=== PATIENT | female | born 1930 | race Caucasian/White ===

== ENCOUNTER 2018-10-30 13:10 | Inpatient (IN) ==
--- NOTE | 2018-10-30 13:20 | Emergency Department Note ---
Disposition Clinical Impression: Elevated troponin, DON (acute kidney injury) Fatigue Qualifiers: Fatigue type: unspecified Qualified Code(s): R53.83 - Other fatigue Disposition: Admitted As Inpatient Condition: Fair Referrals: Isidro Funes MD [Primary Care Provider] - Forms: ED Satisfaction Letter Time of Disposition: 15:27 Weakness HPI - General Chief complaint: ED Weakness Stated complaint: weakness Time Seen by Provider: 10/30/18 13:20 Source: patient Mode of arrival: ambulatory Limitations: no limitations Nursing Notes Reviewed: Yes Vital Signs Reviewed: Yes - History of Present Illness HPI Narrative: Patient is an 88-year-old female with past medical history of COPD, hypothyroidism, chronic lower extremity swelling, possible CHF, diabetes. She presents today due to concern for generalized fatigue. She states that she has felt generally unwell for the past month, has progressively felt more tired each day. She states that now she is to the point that she does not want to get out of that to perform activities of daily living such as cooking and going to the bathroom. Denies any chest pain. She does admit to some increased sputum production from her baseline with COPD. She wears oxygen 2 L at night but none during the day. She denies taking any steroid inhalers. She states that she uses albuterol as needed. Denies any other chest pain, shortness of breath, nausea, vomiting, fevers, diarrhea, abdominal pain, dysuria, hematuria, blood in stool. Admits to night sweats. She does admit to very mild vaginal bleeding from thin vaginal lining and uses Estrace cream. Pain Scale: 8 - Related Data Allergies Allergy/AdvReac Type Severity Reaction Status Date / Time No Known Allergies Allergy Verified 10/30/18 14:14 All systems ED: reviewed and negative except as stated. Constitutional: Reports: night sweats. Denies: fever Past Medical History - Past Medical History Attestation: Yes The following information was validated with the patient. Source: patient Physical Exam - General Limitations: no limitations General appearance: alert, in no apparent distress - Head Head exam: atraumatic, normocephalic, normal inspection - Eye Eye exam: Present: normal appearance, PERRL, EOMI - ENT ENT exam: normal exam, normal oropharynx, mucous membranes moist - Neck Neck exam: Present: normal inspection, full ROM, trachea midline - Chest Chest inspection: Present: normal inspection, symmetric chest wall rise - Respiratory Respiratory exam: Present: normal lung sounds bilaterally - Cardiovascular Cardiovascular exam: Present: regular rate, normal rhythm, normal heart sounds - Abdominal Exam Abdominal exam: Present: soft, Non-Tender. Absent: tenderness, distention, guarding, rebound, rigidity - Extremities Exam Extremities exam: Present: full ROM, pedal edema (pitting moderate). Absent: tenderness - Neurological Exam Neurological exam: Present: alert, oriented X3, CN II-XII intact. Absent: motor sensory deficit - Expanded Neurological Exam Patient oriented to: Present: person, place, time Speech: Present: fluid speech Cranial nerves: EOM function (II, III, IV, ): Normal, facial sensation (V): Normal, facial palsy (VII): Normal, spinal accessory function (XI): Normal, tongue deviation (XII): Normal Motor strength - LUE: 4/5 Motor strength - RUE: 4/5 Motor strength - LLE: 4/5 Motor strength - RLE: 4/5 Sensory exam lower extremity: light touch: Normal Coma Scale Eye Opening: Spontaneous Coma Scale Motor Response: Obeys Commands Coma Scale Verbal Response: Oriented Coma Scale Total: 15 - Psychiatric Psychiatric exam: Present: normal affect, normal mood - Skin Skin exam: Present: warm, dry, intact, normal color Course Course Narrative: Patient has generalized fatigue. No specific symptoms other than increased sputum production. We will obtain EKG, chest x-ray, troponin, basic blood work, TSH, free T3 and T4. Also obtain urinalysis to assess for UTI. Patient has no focal neurologic deficits and is otherwise alert and oriented 3. 15:25 labs show elevated creatinine level. Troponin bumped at 0.07. Patient has no active chest pain or shortness of breath at this time but does have fatigue. No other major joint abnormality. Urine pending. Chest x-ray shows pulmonary edema and small pleural effusions. Currently concern for CHF exacerbation. BNP pending. Patient was accepted by hospitalist. Chest X-Ray 10/30/18 13:55 IMPRESSION: 1. Cardiomegaly with mild pulmonary edema and small bilateral pleural effusions with associated bibasilar atelectasis. D/ / Syd Silverman MD / Syd Silverman MD Interpreting Provider: Syd Silverman MD Vital Signs Temperature 98.1 F 10/30/18 13:12 Pulse Rate 100 10/30/18 13:12 Respiratory Rate 22 10/30/18 13:12 Blood Pressure 148/95 10/30/18 13:12 O2 Sat by Pulse Oximetry 94 10/30/18 13:12 Temperature 98.1 F 10/30/18 14:35 Pulse Rate 100 10/30/18 14:35 Respiratory Rate 22 10/30/18 14:35 Blood Pressure 148/95 10/30/18 14:35 O2 Sat by Pulse Oximetry 94 10/30/18 14:35 Oxygen Delivery Oxygen Delivery Room Air Weakness - MDM Narrative Medical decision making narrative: Patient has generalized fatigue. No specific symptoms other than increased sputum production. We will obtain EKG, chest x-ray, troponin, basic blood work, TSH, free T3 and T4. Also obtain urinalysis to assess for UTI. Patient has no focal neurologic deficits and is otherwise alert and oriented 3. 15:25 labs show elevated creatinine level. Troponin bumped at 0.07. Patient has no active chest pain or shortness of breath at this time but does have fatigue. No other major joint abnormality. Urine pending. Chest x-ray shows pulmonary edema and small pleural effusions. Currently concern for CHF exacerbation. BNP pending. Patient was accepted by hospitalist. - Medical Records Medical records reviewed: Yes I reviewed the patient's medical records. - Lab Data Lab results reviewed: Yes I reviewed the patient's lab results. Result diagrams: 10/30/18 14:06 10/30/18 14:06 Lab Results 10/30/18 10/30/18 10/30/18 Range/Units 14:06 14:06 14:06 WBC 11.0 (4.3-11.1) K/mcL RBC 4.47 (3.82-4.97) M/mcL Hgb 12.1 (11.5-15.4) g/dL Hct 39.5 (35.3-44.9) % MCV 88.4 (83.0-100.0) fL MCH 27.1 L (28.0-33.3) pg MCHC 30.6 L (31.6-35.5) g/dL RDW 16.2 H (11.5-14.5) % Plt Count 339 (140-400) K/mcL MPV 10.0 (9.4-12.4) fL Immature Gran % 0.4 (0-4) % Seg Neutrophils % 76.2 % Lymphocytes % 15.1 % Monocytes % 5.6 % Eosinophils % 2.2 % Basophils % 0.5 % Neutrophils # 8.4 (1.6-8.9) K/mcL Lymphocytes # 1.7 (0.6-4.6) K/mcL Monocytes # 0.6 (0.0-1.3) K/mcL Eosinophils # 0.2 (0.0-0.6) K/mcL Basophils # 0.1 (0.0-0.2) K/mcL Sodium 140 (136-145) mEq/L Potassium 4.1 (3.5-5.1) mEq/L Chloride 100 (98-107) mEq/L Carbon Dioxide 33 H (23-29) mEq/L BUN 26 H (8-23) mg/dL Creatinine 1.58 H (0.60-1.20) mg/dL Est GFR ( Amer) 37 L (> 60) Est GFR (Non-Af Amer) 31 L (> 60) BUN/Creatinine Ratio 16 (6-26) Glucose 193 H (70-105) mg/dL Calculated Osmolality 300 (280-300) Calcium 9.6 (8.6-10.3) mg/dL Troponin I 0.07 H* (< 0.04) ng/mL TSH 3.200 (0.340-5.600) mcIU/mL Free T4 1.05 (0.70-2.00) ng/dl Free T3 3.26 (2.50-3.90) pg/mL - Radiology Data Radiology results reviewed: Yes I reviewed the patient's radiology results. Chest X-Ray 10/30/18 13:55 IMPRESSION: 1. Cardiomegaly with mild pulmonary edema and small bilateral pleural effusions with associated bibasilar atelectasis. D/ / Syd Silverman MD / Syd Silverman MD Interpreting Provider: Syd Silverman MD - EKG Data EKG attestation: Yes I reviewed and interpreted this EKG. EKG results narrative: 10/30/2018 at 13:24. Paced rhythm. Rate 92. QRS 157. QTc 554. No acute ST elevation or depression.
[2018-10-30 14:15] LABS: Basophils # 0.1 K/mcL (0.0-0.2); Basophils % 0.5 %; Eosinophils # 0.2 K/mcL (0.0-0.6); Eosinophils % 2.2 %; Hematocrit 39.5 % (35.3-44.9); Hemoglobin 12.1 g/dL (11.5-15.4); Immature Granulocytes % 0.4 % (0-4); Lymphocytes # 1.7 K/mcL (0.6-4.6); Lymphocytes % 15.1 %; Mean Corpuscular HGB Conc 30.6 g/dL (31.6-35.5); Mean Corpuscular Hemoglobin 27.1 pg (28.0-33.3); Mean Corpuscular Volume 88.4 fL (83.0-100.0); Monocytes # 0.6 K/mcL (0.0-1.3); Monocytes % 5.6 %; Neutrophils # 8.4 K/mcL (1.6-8.9); Platelet Count 339 K/mcL (140-400); Red Blood Count 4.47 M/mcL (3.82-4.97); Red Cell Distribution Width 16.2 % (11.5-14.5); Segmented Neutrophils % 76.2 %
[2018-10-30 14:39] LABS: Calcium 9.6 mg/dL (8.6-10.3); Potassium 4.1 mEq/L (3.5-5.1)
[2018-10-30 14:44] LABS: Troponin I 0.07 ng/mL (< 0.04)
[2018-10-30 14:53] LABS: Thyroid Stimulating Hormone 3.2 mcIU/mL (0.340-5.600)
[2018-10-30 14:55] LABS: Triiodothyronine (T3) Free 3.26 pg/mL (2.50-3.90)
[2018-10-30] MEDS ORDERED: Aspirin 81 MG TAB.CHEW PO STA (15:06)
[2018-10-30] MEDS ORDERED: Naloxone 0.4 MG/ML INJ IVP PRN (16:12)
[2018-10-30] MEDS ORDERED: *HR* Metoprolol 5 MG/5 ML VIAL IVP PRN (16:17)
--- NOTE | 2018-10-30 16:31 | Internal Med History&Physical ---
Date of Encounter: 10/30/18 Time of Encounter: 16:20 Internal Medicine - H&P: HPI Chief complaint: Generalized fatigue, BLE swelling/edema Admitted From: Home Plans for Post Hospital Care: Home History of present illness: Ms. Santos is a 88 year old female with a PMH of CKD 3, COPD, CAD, CHF, DM, chronic respiratory failure on 2 L nasal cannula at home, aortic stenosis, pacer AICD, and HTN. She presents with a greater than one-month history of generalized fatigue and malaise. She reports that she has been feeling generally unwell for greater than one month and that this has been progressively getting worse daily. She feels that she is tired all the time and unable to perform her regular activities of daily living such as self-care, grooming, toileting, or enjoying regular activities. She is not aware of any timeline of in the generalized weakness officially occurred arrest any prompting factors. However, she does note that a couple of weeks ago she was treated for diverticulitis at [facility]. She has not had any other illnesses at this time and denies any fevers, chills, arthralgias, myalgias, weight loss, chest pain, shortness of breath, abdominal pain, nausea, vomiting, diarrhea, URI symp toms, urinary symptoms, unilateral extremity swelling or pain, ill contacts or neurological symptoms. She does admit to having some intermittent night sweats which to not soak her pillowcase or nightclothes and decreased appetite. She does state that she wears 2 L nasal cannula for chronic respiratory failure with that she only wears this at night and has not had to increase her nasal cannula use. While in the ED she had a chest x-ray which showed mild cardiomegaly and mild pulmonary vascular congestion. Additionally, she was found to have an elevated troponin at 0.07. The patient and family who were at bedside deny any prior history of CAD or coronary stents and reports that she has recently had a cardiac workup at [facility] which as far as her knowledge was negative. However some of this information is contradictory as review of PCP notes Dr. nathan patient does indeed have a history of CAD. At the time of my assessment the BMP and urinalysis are pending however, my exam findings do reveal fine bibasilar rales and bilateral lower extremity 2+ pitting edema. At this time I am suspicious she may be having an acute exacerbation of CHF. However, the etiology at this time is unclear I will admit her for observation and obtain an echocardiogram and continue to trend troponins. Additionally, we will provide gentle diuresis. I do not believe at this time that she has had an acute kidney injury as she does have CKD 3. If her alterations or renal function this is most likely c ardiorenal syndrome. Also, her troponins could be explained by CKD and the patient is not endorsing chest pain, is not in obvious distress, and her EKG reveals a paced rhythm with no acute ST-T wave changes concerning for ischemia. Past Med Surg Social Fam HX - Past Medical History Medical history: diabetes, hypertension, myocardial infarction, renal disease Additional medical history: diverticulitis, aortic stenosis Psychiatric history: no psych history - Social History Smoking Status: Former smoker Smokeless Tobacco Status: No Alcohol use: none Drug use: none - Family History Brother Hx Family Endocrine Disorder: Yes (Diabetes) Internal Medicine - H&P: Meds Apixaban [Eliquis] 5 mg PO BID 10/30/18 [History] Aspirin [Adult Aspirin] 81 mg PO DAILY 10/30/18 [History] Calcitriol [Rocaltrol] 0.25 mcg PO MOWEFR 10/30/18 [History] Carvedilol [Coreg] 6.25 mg PO BIDWM 10/30/18 [History] Cholecalciferol (D-3) [Vitamin D] 1,000 unit PO DAILY 10/30/18 [History] Esomeprazole Magnesium [Nexium] 40 mg PO DAILY 10/30/18 [History] Estradiol [Estrace] 1 appl VG DAILY 10/30/18 [History] Furosemide [Lasix] 20 mg PO DAILY 10/30/18 [History] Gabapentin [Neurontin] 100 mg PO TID 10/30/18 [History] Indapamide [Lozol] 1.25 mg PO BID 10/30/18 [History] Insulin Glargine,Hum.rec.anlog [Basaglar Kwikpen U-100] 0 unit SQ 10/30/18 [History] Levothyroxine [Synthroid] 50 mcg PO DAILY 10/30/18 [History] Linagliptin [Tradjenta] 5 mg PO DAILY 10/30/18 [History] Mv,Fe,Min/Lutein [A Thru Z [employer]'s Tablet] 1 tab PO DAILY 10/30/18 [History] Olmesartan Medoxomil [Benicar] 20 mg PO DAILY 10/30/18 [History] Tramadol HCl [Ultram] 50 mg PO Q12H PRN 10/30/18 [History] glipiZIDE [Glipizide] 10 mg PO DAILY 10/30/18 [History] Allergy/AdvReac Type Severity Reaction Status Date / Time No Known Allergies Allergy Verified 10/30/18 14:14 All Systems PM: A 10-system review of systems was performed and is negative for pertinent findings except as documented above in the HPI. - Constitutional Constitutional: as per HPI - EENT Eyes: as per HPI Ears: as per HPI Nose, mouth and throat: as per HPI - Breasts Breasts: as per HPI - Cardiovascular Cardiovascular ROS IM: as per HPI, edema - Respiratory Respiratory: as per HPI, no dyspnea - Gastrointestinal Gastrointestinal: as per HPI, bloating - Genitourinary Genitourinary: as per HPI - Musculoskeletal Musculoskeletal ROS IM: as per HPI, no arthralgias, no myalgias - Integumentary Integumentary IM: as per HPI - Neurological Neurological ROS: as per HPI - Constitutional Vitals: Temp Pulse Resp BP Pulse Ox 98.1 F 100 22 148/95 94 10/30/18 14:35 10/30/18 14:35 10/30/18 14:35 10/30/18 14:35 10/30/18 14:35 General appearance: Present: A&O X 3 Exam: PHYSICAL EXAMINATION: GENERAL: The patient is an obese elderly female, NAD, a and O 3 HEENT: Head is normocephalic and atraumatic. EOMI, PERRLA NECK: Supple. No carotid bruits. No lymphadenopathy or thyromegaly. LUNGS: Diminished with fine bibasilar rales HEART: Regular rate and rhythm, S1, S2 without murmur. BLE 2+ pitting edema ABDOMEN: Soft, nontender, and nondistended. Positive bowel sounds. EXTREMITIES: Without any cyanosis, clubbing, rash, lesions NEUROLOGIC: Cranial nerves II through XII are grossly intact. SKIN: No ulceration or induration present. Internal Med - H&P Results - Labs CBC & Chem 7: 10/30/18 14:06 10/30/18 14:06 Labs: Short CBC 10/30/18 Range/Units 14:06 WBC 11.0 (4.3-11.1) K/mcL Hgb 12.1 (11.5-15.4) g/dL Hct 39.5 (35.3-44.9) % Plt Count 339 (140-400) K/mcL Neutrophils # 8.4 (1.6-8.9) K/mcL BMP 10/30/18 14:06 Sodium 140 Potassium 4.1 Chloride 100 Carbon Dioxide 33 H BUN 26 H Creatinine 1.58 H Glucose 193 H Calcium 9.6 Cardiac Enzymes 10/30/18 Range/Units 14:06 Troponin I 0.07 H* (< 0.04) ng/mL - EKG Data -: EKG Interpreted by Myself - EKG Data EKG comments: Paced rhythm rate of [address]-T wave changes concerning for ischemia per my review 10/30/18 16:38 - Impressions ITS Impressions Chest X-Ray 10/30/18 13:55 IMPRESSION: 1. Cardiomegaly with mild pulmonary edema and small bilateral pleural effusions with associated bibasilar atelectasis. D/ / Syd Silverman MD / Syd Silverman MD Interpreting Provider: Syd Silverman MD - Assessment and plan (1) Generalized weakness Current Visit: Yes Status: Acute Assessment and plan: Reporting generalized weakness greater than one-month Etiology unclear On admission was found to have pulmonary vascular congestion, fluid overload with BLE 2+ pitting edema and elevated BNP of 1523 Troponin elevated at 0.07 Generalized weakness and fatigue most likely attributed to fluid overload and CHF PT/OT to see (2) Congestive heart failure Current Visit: Yes Status: Acute Assessment and plan: Acute unspecified heart failure prior echocardiogram for review Order TTE to assess cardiac function to evaluate for valvular abnormalities Presented with fluid overload; CXR with pulmonary vascular congestion, elevated BNP [address]-T wave changes concerning for ischemia, with paced rhythm Initial troponin elevated at 0.07 However, patient remains chest pain-free and denies ever having any chest pain Strict I's and O's Daily weight 2 L fluid restriction Lasix 40 mg IV push twice a day Qualifiers: Heart failure type: unspecified Heart failure chronicity: acute Qualified Code(s): I50.9 - Heart failure, unspecified (3) Fluid overload Current Visit: Yes Status: Acute Assessment and plan: As above Qualifiers: Hypervolemia type: unspecified Qualified Code(s): E87.70 - Fluid overload, unspecified (4) Diabetes Current Visit: Yes Status: Acute Assessment and plan: Start LSSIC Before meals and at bedtime Accu-Cheks Diabetic diet Qualifiers: Diabetes mellitus type: type 2 Diabetes mellitus joint terminal attack controller insulin use: without joint terminal attack controller use Diabetes mellitus complication status: with unspecified complications Qualified Code(s): E11.8 - Type 2 diabetes mellitus with unspecified complications (5) Hypertension Current Visit: Yes Status: Acute Assessment and plan: Continue home anti-HTN medications, BP controlled at this time. It appears she may have not taken her a.m. medications Qualifiers: Hypertension type: essential hypertension Qualified Code(s): I10 - Essent ial (primary) hypertension (6) Hypothyroidism Current Visit: Yes Status: Acute Assessment and plan: Continue Synthroid at home dose TSH, T3, T4 WNL Qualifiers: Hypothyroidism type: unspecified Qualified Code(s): E03.9 - Hypothyroidism, unspecified (7) Elevated troponin Current Visit: Yes Status: Acute Assessment and plan: Etiology likely multifactorial including demand ischemia with congestive heart failure and fluid overload. Patient also has CKD. She continues to be chest pain-free without any ST-T wave changes on EKG. (8) Elevated brain natriuretic peptide (BNP) level Current Visit: Yes Status: Acute (9) CKD (chronic kidney disease), stage III Current Visit: Yes Status: Acute (10) DON (acute kidney injury) Current Visit: Yes Status: Acute Assessment and plan: Unclear baseline renal function History of CKD 3 Serum creatinine 1.58, GFR 31 Consider cardiorenal cause with CHF and fluid overload Gentle he diurese and monitor - Time Spent With Patient Total time spent is greater than 50% in coordination of care (as documented) at patient's floor/unit and/or counseling patient: less than 15 minutes
--- NOTE | 2018-10-30 16:33 | Emergency Department Note ---
Disposition Clinical Impression: Elevated troponin, DON (acute kidney injury) Fatigue Qualifiers: Fatigue type: unspecified Qualified Code(s): R53.83 - Other fatigue Disposition: Admitted As Inpatient Condition: Fair General Adult HPI - General Chief complaint: ED Weakness Stated complaint: weakness Time Seen by Provider: 10/30/18 13:20 Source: patient Mode of arrival: ambulatory Limitations: no limitations - History of Present Illness Pain Scale: 0 - Related Data Allergies Allergy/AdvReac Type Severity Reaction Status Date / Time No Known Allergies Allergy Verified 10/30/18 14:14 Constitutional: Reports: night sweats. Denies: fever Past Medical History - Past Medical History Medical history: Reports: diabetes, hypertension, myocardial infarction, renal disease Psychiatric history: Reports: no psych history - Social History Smoking Status: Former smoker Smokeless Tobacco Status: No Alcohol use: Reports: none Drug use: Reports: none Physical Exam - General Limitations: no limitations General appearance: alert, in no apparent distress Course Vital Signs Temperature 98.1 F 10/30/18 13:12 Pulse Rate 100 10/30/18 13:12 Respiratory Rate 22 10/30/18 13:12 Blood Pressure 148/95 10/30/18 13:12 O2 Sat by Pulse Oximetry 94 10/30/18 13:12 Temperature 98.1 F 10/30/18 14:35 Pulse Rate 86 10/30/18 16:24 Respiratory Rate 20 10/30/18 16:24 Blood Pressure 159/104 10/30/18 16:24 O2 Sat by Pulse Oximetry 94 10/30/18 16:24 Oxygen Delivery Oxygen Delivery Room Air Medical Decision Making - Lab Data Result diagrams: 10/30/18 14:06 10/30/18 14:06 Lab Results 10/30/18 10/30/18 10/30/18 Range/Units 14:06 14:06 14:06 WBC 11.0 (4.3-11.1) K/mcL RBC 4.47 (3.82-4.97) M/mcL Hgb 12.1 (11.5-15.4) g/dL Hct 39.5 (35.3-44.9) % MCV 88.4 (83.0-100.0) fL MCH 27.1 L (28.0-33.3) pg MCHC 30.6 L (31.6-35.5) g/dL RDW 16.2 H (11.5-14.5) % Plt Count 339 (140-400) K/mcL MPV 10.0 (9.4-12.4) fL Immature Gran % 0.4 (0-4) % Seg Neutrophils % 76.2 % Lymphocytes % 15.1 % Monocytes % 5.6 % Eosinophils % 2.2 % Basophils % 0.5 % Neutrophils # 8.4 (1.6-8.9) K/mcL Lymphocytes # 1.7 (0.6-4.6) K/mcL Monocytes # 0.6 (0.0-1.3) K/mcL Eosinophils # 0.2 (0.0-0.6) K/mcL Basophils # 0.1 (0.0-0.2) K/mcL Sodium 140 (136-145) mEq/L Potassium 4.1 (3.5-5.1) mEq/L Chloride 100 (98-107) mEq/L Carbon Dioxide 33 H (23-29) mEq/L BUN 26 H (8-23) mg/dL Creatinine 1.58 H (0.60-1.20) mg/dL Est GFR ( Amer) 37 L (> 60) Est GFR (Non-Af Amer) 31 L (> 60) BUN/Creatinine Ratio 16 (6-26) Glucose 193 H (70-105) mg/dL Calculated Osmolality 300 (280-300) Calcium 9.6 (8.6-10.3) mg/dL Troponin I 0.07 H* (< 0.04) ng/mL B-Natriuretic Peptide (Less than 100) pg/mL TSH 3.200 (0.340-5.600) mcIU/mL Free T4 1.05 (0.70-2.00) ng/dl Free T3 3.26 (2.50-3.90) pg/mL 10/30/18 Range/Units 14:06 WBC (4.3-11.1) K/mcL RBC (3.82-4.97) M/mcL Hgb (11.5-15.4) g/dL Hct (35.3-44.9) % MCV (83.0-100.0) fL MCH (28.0-33.3) pg MCHC (31.6-35.5) g/dL RDW (11.5-14.5) % Plt Count (140-400) K/mcL MPV (9.4-12.4) fL Immature Gran % (0-4) % Seg Neutrophils % % Lymphocytes % % Monocytes % % Eosinophils % % Basophils % % Neutrophils # (1.6-8.9) K/mcL Lymphocytes # (0.6-4.6) K/mcL Monocytes # (0.0-1.3) K/mcL Eosinophils # (0.0-0.6) K/mcL Basophils # (0.0-0.2) K/mcL Sodium (136-145) mEq/L Potassium (3.5-5.1) mEq/L Chloride (98-107) mEq/L Carbon Dioxide (23-29) mEq/L BUN (8-23) mg/dL Creatinine (0.60-1.20) mg/dL Est GFR ( Amer) (> 60) Est GFR (Non-Af Amer) (> 60) BUN/Creatinine Ratio (6-26) Glucose (70-105) mg/dL Calculated Osmolality (280-300) Calcium (8.6-10.3) mg/dL Troponin I (< 0.04) ng/mL B-Natriuretic Peptide 1523 H (Less than 100) pg/mL TSH (0.340-5.600) mcIU/mL Free T4 (0.70-2.00) ng/dl Free T3 (2.50-3.90) pg/mL Attestation Statement - Attestation Attestation: I examined this patient and my medical decision-making was reviewed with the Resident Physician. I agree with the documented findings, disposition and treatment plan as described except to the extent set forth below. Patient is a vague historian who complains of being "tired all over." She has a hard time describing what this means. She says that it is hard for her to breathe because her stomach is bloated. She has no distention of my exam. Diagnostic workup was consistent with heart failure. Urinalysis is still pend ing. She has a troponin of 0.07, no prior troponins on the record. She has baseline renal insufficiency which is at baseline. Discussed with the hospitalist who accepted for admission.
[2018-10-30 16:43] LABS: Bilirubin,Urine Negative (Negative); Blood,Urine Moderate (Negative); Clarity,Urine Turbid (Clear); Color,Urine Yellow (Yellow); Glucose,Urine (UA) Normal (Normal); Ketones,Urine Negative (Negative); Leukocyte Esterase,Urine Large (Negative); Nitrite,Urine Negative (Negative); Protein,Urine 100 mg/dL (Neg-Trace); Specific Gravity,Urine 1.013 (1.010-1.025); Urobilinogen,Urine Normal (Normal)
[2018-10-30 16:46] LABS: Hyaline Casts,Urine None Seen per lpf (None-Few); Squamous Epithelial Cell,Urine Many per lpf (None-Few); WBC,Urine TNTC per hpf (0-3)
[2018-10-30] MEDS ORDERED: *HR* Dextrose 50 % in Water (Syg) 50 ML SYRINGE IVP PRN (16:48)
[2018-10-30] MEDS ORDERED: Dextrose Gel 15 GM/37.5 ML TUBE PO PRN ×2 (16:48)
[2018-10-30] MEDS ORDERED: D5% in Water 1,000 ML IVC PRN (16:48)
[2018-10-30 17:10] LABS: Bacteria,Urine Many per hpf (None-Few)
[2018-10-30] MEDS ORDERED: traMADol 50 MG TABLET PO PRN (17:32)
[2018-10-30] MEDS ORDERED: cefTRIAXone 1,000 MG in Water for inj. (sterile) 20 ML 10 ML IVP ONE (18:48)
[2018-10-30] MEDS: Apixaban 5 MG TABLET PO SCH (20:26)
[2018-10-30] MEDS: Furosemide 40 MG/4 ML VIAL IVP SCH (20:27)
[2018-10-30] MEDS: Gabapentin 100 MG CAPSULE PO SCH (20:27)
[2018-10-30] MEDS: Insulin LISPRO 300 UNITS/3 ML VIAL SQ SCH (21:43)
[2018-10-30] MEDS: Simethicone 80 MG TAB.CHEW PO PRN (23:10)
[2018-10-30 23:34] LABS: Adenovirus Not Detected (Not Detect); Bordetella Pertussis Not Detected (Not Detect); Chlamydophila pneumoniae Not Detected (Not Detect); Coronavirus 229E Not Detected (Not Detect); Coronavirus HKU1 Not Detected (Not Detect); Coronavirus NL63 Not Detected (Not Detect); Coronavirus OC43 Not Detected (Not Detect); Human Metapneumovirus Not Detected (Not Detect); Human Rhinovirus/Enterovirus Not Detected (Not Detect); Influenza A Subtype 2009 H1 Not Detected (Not Detect); Influenza A Untypeable Not Detected (Not Detect); Influenza B Not Detected (Not Detect); Mycoplasma pneumoniae Not Detected (Not Detect); Parainfluenza Virus 1 Not Detected (Not Detect); Parainfluenza Virus 2 Not Detected (Not Detect); Parainfluenza Virus 3 Not Detected (Not Detect); Parainfluenza Virus 4 Not Detected (Not Detect); Respiratory Syncytial Virus Not Detected (Not Detect)
[2018-10-31 02:32] LABS: Basophils # 0.1 K/mcL (0.0-0.2); Basophils % 0.6 %; Eosinophils # 0.1 K/mcL (0.0-0.6); Hematocrit 39.6 % (35.3-44.9); Hemoglobin 12.1 g/dL (11.5-15.4); Immature Granulocytes % 0.3 % (0-4); Lymphocytes # 2.1 K/mcL (0.6-4.6); Lymphocytes % 18.5 %; Mean Corpuscular HGB Conc 30.6 g/dL (31.6-35.5); Mean Corpuscular Hemoglobin 27.1 pg (28.0-33.3); Mean Corpuscular Volume 88.8 fL (83.0-100.0); Mean Platelet Volume 10.1 fL (9.4-12.4); Monocytes # 0.7 K/mcL (0.0-1.3); Neutrophils # 8.5 K/mcL (1.6-8.9); Platelet Count 297 K/mcL (140-400); Red Blood Count 4.46 M/mcL (3.82-4.97); Red Cell Distribution Width 16.4 % (11.5-14.5); Segmented Neutrophils % 73.6 %
[2018-10-31 02:54] LABS: Calcium 9.8 mg/dL (8.6-10.3); Chol/HDL Ratio 3.4 (0-4.9); Potassium 3.9 mEq/L (3.5-5.1)
[2018-10-31 03:02] LABS: Troponin I 0.07 ng/mL (< 0.04)
[2018-10-31] MEDS ORDERED: ESTRADIOL APPL VG SCH (09:00)
--- NOTE | 2018-10-31 09:57 | Internal Med Progress Note ---
Hospitalist Progress Note - Encounter Date of Encounter: 10/31/18 Time of Encounter: 09:55 - Subjective Interval History: Patient seen and examined at bedside today. She reports that she is continuing to feel generally weak and easily fatigued. - Exam Vitals: Temp Pulse Resp BP Pulse Ox 97.6 F 71 18 140/84 97 10/31/18 06:52 10/31/18 06:52 10/31/18 06:52 10/31/18 06:52 10/31/18 06:52 Exam: PHYSICAL EXAMINATION: GENERAL: The patient is an obese elderly female, NAD, a and O 3 HEENT: Head is normocephalic and atraumatic. EOMI, PERRLA NECK: Supple. No carotid bruits. No lymphadenopathy or thyromegaly. LUNGS: Diminished with fine bibasilar rales HEART: Regular rate and rhythm, S1, S2 without murmur. BLE 1+ pitting edema ABDOMEN: Soft, nontender, and nondistended. Positive bowel sounds. EXTREMITIES: Without any cyanosis, clubbing, rash, lesions NEUROLOGIC: Cranial nerves II through XII are grossly intact. SKIN: No ulceration or induration present. - Assessment and Plan (1) Generalized weakness Current Visit: Yes Status: Acute Assessment and Plan: Reporting generalized weakness greater than one-month Etiology unclear On admission was found to have pulmonary vascular congestion, fluid overload with BLE 2+ pitting edema and elevated BNP of 1523 Troponin elevated at 0.07 Generalized weakness and fatigue most likely attributed to fluid overload and CHF PT/OT to see 10/31--generalized weakness persists. Most likely due to an acute exacerbation of CHF as well as UTI. Continue to treat both. Echocardiogram pending (2) Congestive heart failure Current Visit: Yes Status: Acute Assessment and Plan: Acute unspecified heart failure prior echocardiogram for review Order TTE to assess cardiac function to evaluate for valvular abnormalities Presented with fluid overload; CXR with pulmonary vascular congestion, elevated BNP [address]-T wave changes concerning for ischemia, with paced rhythm Initial troponin elevated at 0.07 However, patient remains chest pain-free and denies ever having any chest pain 10/31--clinically, patient improving. BLE edema now 1+ which is an improvement from yesterday. No longer having bibasilar rales. Strict I's and O's negative fluid volume -350 Daily weight-stable Continue 2 L fluid restriction Continue to diurese with Lasix 40 mg IV push twice a day (3) Fluid overload Current Visit: Yes Status: Acute Assessment and Plan: As above (4) Diabetes Current Visit: Yes Status: Acute Assessment and Plan: Continue LSSIC Before meals and at bedtime Accu-Cheks Diabetic diet (5) Hypertension Current Visit: Yes Status: Acute Assessment and Plan: Continue home anti-HTN medications, BP controlled at this time. It appears she may have not taken her a.m. medications (6) Hypothyroidism Current Visit: Yes Status: Acute Assessment and Plan: Continue Synthroid at home dose TSH, T3, T4 WNL (7) Elevated troponin Current Visit: Yes Status: Acute Assessment and Plan: Etiology likely multifactorial including demand ischemia with congestive heart failure and fluid overload. Patient also has CKD. She continues to be chest pain-free without any ST-T wave changes on EKG. Troponins adynamic and peaked at 0.08, third troponin 0.07 Consider demand ischemia with fluid overload and CHF Continues to deny chest pain (8) Elevated brain natriuretic peptide (BNP) level Current Visit: Yes Status: Acute (9) CKD (chronic kidney disease), stage III Current Visit: Yes Status: Acute (10) DON (acute kidney injury) Current Visit: Yes Status: Acute Assessment and Plan: Unclear baseline renal function History of CKD 3 Serum creatinine 1.58, GFR 31 Consider cardiorenal cause with CHF and fluid overload Gentle he diurese and monitor (11) UTI (urinary tract infection) Current Visit: Yes Status: Acute Assessment and Plan: Urinalysis with turbid urine, moderate blood, large leukocyte esterase and pyuria With weakness, malaise and easy fatigability continue to treat as UTI Continue Rocephin dose #2 - Time Spent with Patient Total time spent is greater than 50% in coordination of care (as documented) at patient's floor/unit and/or counseling patient: less than 15 minutes Plan of Care Discussed with: patient Internal Medicine: Result - Labs CBC & Chem 7: 10/31/18 02:21 1218 02:21 Labs: Short CBC 10/30/18 10/31/18 Range/Units 14:06 02:21 WBC 11.0 11.6 H (4.3-11.1) K/mcL Hgb 12.1 12.1 (11.5-15.4) g/dL Hct 39.5 39.6 (35.3-44.9) % Plt Count 339 297 (140-400) K/mcL Neutrophils # 8.4 8.5 (1.6-8.9) K/mcL BMP 10/30/18 10/31/18 14:06 02:21 Sodium 140 140 Potassium 4.1 3.9 Chloride 100 101 Carbon Dioxide 33 H 30 H BUN 26 H 29 H Creatinine 1.58 H 1.57 H Glucose 193 H 182 H Calcium 9.6 9.8 Cardiac Enzymes 10/30/18 10/30/18 10/31/18 Range/Units 14:06 20:15 02:21 Troponin I 0.07 H* 0.08 H* 0.07 H* (< 0.04) ng/mL Urine 10/30/18 Range/Units 16:25 Urine Color Yellow (Yellow) Urine Clarity Turbid A (Clear) Urine pH 7.0 (5.0-8.0) pH Units Ur Specific Hematite 1.013 (1.010-1.025) Urine Protein 100 H (Neg-Trace) mg/dL Urine Glucose (UA) Normal (Normal) mg/dL - Impressions Impressions Chest X-Ray 10/30/18 13:55 IMPRESSION: 1. Cardiomegaly with mild pulmonary edema and small bilateral pleural effusions with associated bibasilar atelectasis. D/ / Syd Silverman MD / Syd Silverman MD Interpreting Provider: Syd Silverman MD Consult Discharge Plan - Plan Referrals: Isidro Funes MD [Primary Care Provider] - (2) Congestive heart failure Qualifiers: Heart failure type: unspecified Heart failure chronicity: acute Qualified Code(s): I50.9 - Heart failure, unspecified (3) Fluid overload Qualifiers: Hypervolemia type: unspecified Qualified Code(s): E87.70 - Fluid overload, unspecified (4) Diabetes Qualifiers: Diabetes mellitus type: type 2 Diabetes mellitus terminal operator insulin use: without fdc use Diabetes mellitus complication status: with unspecified complications Qualified Code(s): E11.8 - Type 2 diabetes mellitus with unspecified complications (5) Hypertension Qualifiers: Hypertension type: essential hypertension Qualified Code(s): I10 - Essential (primary) hypertension (6) Hypothyroidism Qualifiers: Hypothyroidism type: unspecified Qualified Code(s): E03.9 - Hypothyroidism, unspecified (11) UTI (urinary tract infection) Qualifiers: Urinary tract infection type: site unspecified Hematuria presence: with hematuria Qualified Code(s): N39.0 - Urinary tract infection, site not specified; R31.9 - Hematuria, unspecified
[2018-10-31] MEDS ORDERED: Perflutren Lipid Microsphere 1.3 ML in 0.9 % Sodium Chloride 8.7 ML IVP ONE (10:16)
[2018-10-31] MEDS: Simethicone 80 MG TAB.CHEW PO PRN (10:23)
[2018-10-31] MEDS: Mag Hydrox/Al Hydrox/Simeth 30 ML UDC PO PRN (10:23)
[2018-10-31] MEDS: Multivit/Ca/Min/Fe/FA 1 TAB TABLET PO SCH (10:24)
[2018-10-31] MEDS: Gabapentin 100 MG CAPSULE PO SCH (10:24)
[2018-10-31] MEDS: Aspirin 81 MG TAB.CHEW PO SCH (10:24)
[2018-10-31] MEDS: Apixaban 5 MG TABLET PO SCH ×2 (10:24→21:28)
[2018-10-31] MEDS: Cholecalciferol (D-3) 1,000 UNIT TABLET PO SCH (10:24)
[2018-10-31] MEDS: Insulin LISPRO 300 UNITS/3 ML VIAL SQ SCH ×4 (10:25→21:19)
[2018-10-31] MEDS: Furosemide 40 MG/4 ML VIAL IVP SCH ×2 (10:25→16:38)
[2018-10-31] MEDS: *HR* OxyCODONE Immed Rel 5 MG TABLET PO PRN (14:33)
[2018-10-31] MEDS ORDERED: cefTRIAXone 1,000 MG in Water for inj. (sterile) 20 ML 10 ML IVP SCH (19:00)
[2018-11-01] MEDS: MetroNIDAZOLE 500 MG/100 ML 500 MG/100 ML BAG IVPB SCH ×3 (00:07→16:35)
[2018-11-01] MEDS: Apixaban 5 MG TABLET PO SCH ×2 (09:06→19:39)
[2018-11-01] MEDS: Multivit/Ca/Min/Fe/FA 1 TAB TABLET PO SCH (09:06)
[2018-11-01] MEDS: Insulin LISPRO 300 UNITS/3 ML VIAL SQ SCH ×4 (09:07→19:47)
[2018-11-01] MEDS: Cholecalciferol (D-3) 1,000 UNIT TABLET PO SCH (09:07)
[2018-11-01] MEDS: Aspirin 81 MG TAB.CHEW PO SCH (09:07)
[2018-11-01] MEDS: Furosemide 40 MG/4 ML VIAL IVP SCH ×2 (09:07→16:35)
--- NOTE | 2018-11-01 12:24 | Internal Med Progress Note ---
Hospitalist Progress Note - Encounter Date of Encounter: 11/01/18 Time of Encounter: 12:24 - Subjective Interval History: Pt states she is still having 4/10 abdominal pain. She denies N/V or diarrhea. She denies bright red or bloody stools. - Exam Vitals: Temp Pulse Resp BP Pulse Ox 98.4 F 76 16 111/60 97 11/01/18 10:50 11/01/18 10:50 11/01/18 10:50 11/01/18 10:50 11/01/18 10:50 Exam: PHYSICAL EXAMINATION: GENERAL: The patient is an obese elderly female, NAD, a and O 3 HEENT: Head is normocephalic and atraumatic. EOMI, PERRLA NECK: Supple. No carotid bruits. No lymphadenopathy or thyromegaly. LUNGS: Diminished with fine bibasilar rales HEART: Regular rate and rhythm, S1, S2 without murmur. BLE 1+ pitting edema ABDOMEN: Soft, non-tender, and non-distended. Positive bowel sounds. EXTREMITIES: Without any cyanosis, clubbing, rash, lesions NEUROLOGIC: Cranial nerves II through XII are grossly intact. SKIN: No ulceration or induration present. - Assessment and Plan (1) Acute diverticulitis Current Visit: Yes Status: Acute Assessment and Plan: Pt is on Cipro and Flagyl which will continue for now. WBC 11.0 today and will recheck in am. (2) DON (acute kidney injury) Current Visit: Yes Status: Acute Assessment and Plan: Unclear baseline renal function History of CKD 3 Serum creatinine 1.58, GFR 31 Was given Lasix 40 mg IV BID. Will change to Lasix 20 mg PO QD, home dose. Will recheck renal panel in am. (3) Generalized weakness Current Visit: Yes Status: Acute Assessment and Plan: Reporting generalized weakness greater than one-month On admission was found to have pulmonary vascular congestion, fluid overload with BLE 2+ pitting edema and elevated BNP of 1523 Troponin elevated at 0.07 Generalized weakness and fatigue most likely attributed to fluid overload and CHF. 10/31--generalized weakness persists. Most likely due to an acute exacerbation of CHF as well as UTI. Continue to treat both. Echocardiogram pending. 11/01/2018--slowly improving on this admission. PT/OT to see (4) Congestive heart failure Current Visit: Yes Status: Acute Assessment and Plan: Acute unspecified heart failure Order TTE to assess cardiac function to evaluate for valvular abnormalities Presented with fluid overload; CXR with pulmonary vascular congestion, elevated BNP [address]-T wave changes concerning for ischemia, with paced rhythm Initial troponin elevated at 0.07 However, patient remains chest pain-free and denies ever having any chest pain 10/31--clinically, patient improving. BLE edema now 1+ which is an improvement from yesterday. No longer having bibasilar rales. Strict I's and O's negative fluid volume -350 Daily weight-stable Continue 2 L fluid restriction Continue to diurese and Lasix 40 mg IV push twice a day switched to Lasix 20 mg PO QD, home dose. Echo reviewed and results below. Known Hx aortic stenosis. Echo EV/EV echocardiogram w enhance Impressions: LVEF 30-35%. Mild-moderately dilated left ventricle. LV wall thickness measurements could not be optimally obtained. Grossly, there in concentric hypertrophy. Indeterminate diastolic function. Definity echo contrast was used. There is no LV thrombus. Normal right ventricular structure and function. Low gradient severe aortic stenosis. Moderate mitral regurgitation. Mild-moderate tricuspid regurgitation. Moderate-severe pulmonary hypertension. No prior echo at [facility] for comparison. Findings are not new - please see outpatient Cardiology notes. (5) Fluid overload Current Visit: Yes Status: Acute Assessment and Plan: As above (6) Diabetes Current Visit: Yes Status: Acute Assessment and Plan: Continue LSSIC Before meals and at bedtime Accu-Cheks Diabetic diet (7) Hypertension Current Visit: Yes Status: Acute Assessment and Plan: Continue home anti-HTN medications, BP controlled at this time. On Cozaar and Coreg (8) Hypothyroidism Current Visit: Yes Status: Acute Assessment and Plan: Continue Synthroid at home dose TSH, T3, T4 WNL (9) Elevated troponin Current Visit: Yes Status: Acute Assessment and Plan: Etiology likely multifactorial including demand ischemia with congestive heart failure and fluid overload. Patient also has CKD. She continues to be chest pain-free without any ST-T wave changes on EKG. Troponins adynamic and peaked at 0.08, third troponin 0.07 Likely demand ischemia with fluid overload and CHF Continues to deny chest pain (10) CKD (chronic kidney disease), stage III Current Visit: Yes Status: Acute (11) UTI (urinary tract infection) Current Visit: Yes Status: Acute Assessment and Plan: Urinalysis with turbid urine, moderate blood, large leukocyte esterase and pyuria With weakness, malaise and easy fatigability continue to treat as UTI Will DC Rocephin dose, urine culture so far no GTD DVT Prophylaxis: Eliquis - Summary of Assessment and Plan Summary of Assessment and Plan: History of present illness: CARLITOS Maurer Ms. Santos is a 88 year old female with a PMH of CKD 3, COPD, CAD, CHF, DM, chronic respiratory failure on 2 L nasal cannula at home, aortic stenosis, pacer AICD, and HTN. She presents with a greater than one-month history of generalized fatigue and malaise. She reports that she has been feeling generally unwell for greater than one month and that this has been progressively getting worse daily. She feels that she is tired all the time and unable to perform her regular activities of daily living such as self-care, grooming, toileting, or enjoying regular activities. She is not aware of any timeline of in the generalized weakness officially occurred arrest any prompting factors. However, she does note that a couple of weeks ago she was treated for diverticulitis at [facility]. She has not had any other illnesses at this time and denies any fevers, chills, arthralgias, myalgias, weight loss, chest pain, shortness of breath, abdominal pain, nausea, vomiting, diarrhea, URI symptoms, urinary symptoms, unilateral extremity swelling or pain, ill contacts or neurological symptoms. She does admit to having some intermittent night sweats which to not soak her pillowcase or nightclothes and decreased appetite. She does state that she wears 2 L nasal cannula for chronic respiratory failure with that she only wears this at night and has not had to increase her nasal cannula use. While in the ED she had a chest x-ray which showed mild cardiomegaly and mild pulmonary vascular congestion. Additionally, she was found to have an elevated troponin at 0.07. The patient and family who were at bedside deny any prior history of CAD or coronary stents and reports that she has recently had a cardiac workup at [facility] which as far as her knowledge was negative. However some of this information is contradictory as review of PCP notes Dr. nathan patient does indeed have a history of CAD. At the time of my assessment the BMP and urinalysis are pending however, my exam findings do reveal fine bibasilar rales and bilateral lower extremity 2+ pitting edema. At this time I am suspicious she may be having an acute exacerbation of CHF. However, the etiology at this time is unclear I will admit her for observation and obtain an echocardiogram and continue to trend troponins. Additionally, we will provide gentle diuresis. I do not believe at this time that she has had an acute kidney injury as she does have CKD 3. If her alterations or renal function this is most likely cardiorenal syndrome. Also, her troponins could be explained by CKD and the patient is not endorsing chest pain, is not in obvious distress, and her EKG reveals a paced rhythm with no acute ST-T wave changes c oncerning for ischemia. - Time Spent with Patient Total time spent is greater than 50% in coordination of care (as documented) at patient's floor/unit and/or counseling patient: less than 15 minutes Plan of Care Discussed with: patient Internal Medicine: Result - Labs CBC & Chem 7: 10/31/18 02:21 10/31/18 02:21 - Impressions Impressions Abdomen/Pelvis CT 10/31/18 14:04 IMPRESSION: Acute sigmoid diverticulitis. No bowel obstruction. Moderate pleural effusions. Small pericardial effusion. D/ / 10/31/2018 18:09:35 Satish Maxwell MD / Zoey Smith Interpreting Provider: Satish Maxwell MD Echocardiogram 10/31/18 16:19 Impressions: LVEF 30-35%. Mild-moderately dilated left ventricle. LV wall thickness measurements could not be optimally obtained. Grossly, there in concentric hypertrophy. Indeterminate diastolic function. Definity echo contrast was used. There is no LV thrombus. Normal right ventricular structure and function. Low gradient severe aortic stenosis. Moderate mitral regurgitation. Mild-moderate tricuspid regurgitation. Moderate-severe pulmonary hypertension. No prior echo at [facility] for comparison. Findings are not new - please see outpatient Cardiology notes. Left Ventricular Wall Motion: Rest Echo Findings The apex, apical inferior, mid inferior, basal inferior, apical anterior, mid anterior, basal anterior, apical septal, mid inferior septal, basal inferior septal, apical lateral, mid anterior lateral, basal anterior lateral, mid anterior septal, mid inferior lateral, basal anterior septal and basal inferior lateral rushing were hypokinetic. Findings: Study Quality * Technically sub-optimal due to poor echocardiographic windows. ECG Findings * Atrial fibrillation. Left Ventricle * LV wall thickness measurements could not be optimally obtained. Grossly, there in concentric hypertrophy. * Mild-moderately dilated left ventricle. * Indeterminate diastolic function. * Definity echo contrast was used. * There is no LV thrombus. * LVEF 30-35%. Right Ventricle * Normal right ventricular structure and function. Left Atrium * Moderately dilated left atrium. Right Atrium * Normal right atrial size. Aortic Valve * Aortic valve not well visualized. * Mild aortic regurgitation. * Low gradient severe aortic stenosis. (PV 3.5m/s, MG 27 mmHg, DI 0.19, JULIANNA 0.6cm2, SVI 19mL/m2) Mitral Valve * Mild mitral annular calcification * No mitral stenosis. * Mildly thickened mitral valve leaflets. * Moderate mitral regurgitation. Tricuspid Valve * Tricuspid valve not well visualized. * Mild-moderate tricuspid regurgitation. * Estimated RA pressure is 8 mmHg. * Estimated RVSP is 62 mmHg. * Moderate-severe pulmonary hypertension. Pulmonic Valve * Pulmonic valve is not well visualized. * No pulmonic stenosis. * No pulmonic regurgitation. Pulmonary Artery * Pulmonary artery not well visualized. Aorta * Normally sized aortic root. Pericardium * There is no pericardial effusion present. Device lead * A device lead was visualized in the right atrium and right ventricle. IVC * The IVC is not dilated. * < 50% respiratory change. Interatrial Septum * Interatrial septum not well evaluated. Consult Discharge Plan - Plan Referrals: Isidro Funes MD [Primary Care Provider] - (web request sent on 10/31/18) (4) Congestive heart failure Qualifiers: Heart failure type: unspecified Heart failure chronicity: acute Qualified Code(s): I50.9 - Heart failure, unspecified (5) Fluid overload Qualifiers: Hypervolemia type: unspecified Qualified Code(s): E87.70 - Fluid overload, unspecified (6) Diabetes Qualifiers: Diabetes mellitus type: type 2 Diabetes mellitus prison insulin use: without silk screen etcher use Diabetes mellitus complication status: with unspecified complications Qualified Code(s): E11.8 - Type 2 diabetes mellitus with unspecified complications (7) Hypertension Qualifiers: Hypertension type: essential hypertension Qualified Code(s): I10 - Essential (primary) hypertension (8) Hypothyroidism Qualifiers: Hypothyroidism type: unspecified Qualified Code(s): E03.9 - Hypothyroidism, unspecified (11) UTI (urinary tract infection) Qualifiers: Urinary tract infection type: site unspecified Hematuria presence: with hematuria Qualified Code(s): N39.0 - Urinary tract infection, site not specified; R31.9 - Hematuria, unspecified
--- NOTE | 2018-11-01 16:17 | Electrocardiograph Report ---
[address] [place] [address] Test Date: 2018-10-30 Pat Name: rFancie Santos Department: EXAM9 Room: 2A32 Gender: F Dovetailer: : 1930 Requested By: Matthieu Smart Order Number: [id number] Reading MD: Melinda Doshi Measurements Intervals [place] Rate: 92 P: [place]: QRS: -65 QRSD: 157 T: 108 QT: 395 QTc: 489 Interpretive Statements Atria fibrillation LVH with strain Intraventricular conduction delay Left axis deviation Cannot rule out inferior infarct, age indeterminate Electronically Signed On 11-01-2018 16:16:18 EST by Melinda Doshi
[2018-11-01] MEDS ORDERED: Furosemide 20 MG TABLET PO PRN (17:14)
[2018-11-01] MEDS ORDERED: Melatonin 3 MG TABLET PO PRN ×2 (23:08→23:11)
[2018-11-02] MEDS: MetroNIDAZOLE 500 MG/100 ML 500 MG/100 ML BAG IVPB SCH ×3 (00:05→15:44)
[2018-11-02] MEDS ORDERED: *HR* LORazepam 0.5 MG TABLET PO ONE (03:50)
[2018-11-02 06:08] LABS: Basophils # 0.1 K/mcL (0.0-0.2); Basophils % 0.5 %; Eosinophils # 0.2 K/mcL (0.0-0.6); Eosinophils % 1.8 %; Hematocrit 41.4 % (35.3-44.9); Hemoglobin 12.7 g/dL (11.5-15.4); Immature Granulocytes % 0.5 % (0-4); Lymphocytes # 1.9 K/mcL (0.6-4.6); Mean Corpuscular HGB Conc 30.7 g/dL (31.6-35.5); Mean Corpuscular Hemoglobin 26.6 pg (28.0-33.3); Mean Corpuscular Volume 86.8 fL (83.0-100.0); Mean Platelet Volume 9.9 fL (9.4-12.4); Monocytes % 7.6 %; Neutrophils # 9.5 K/mcL (1.6-8.9); Platelet Count 330 K/mcL (140-400); Red Blood Count 4.77 M/mcL (3.82-4.97); Red Cell Distribution Width 15.9 % (11.5-14.5); Segmented Neutrophils % 74.6 %
[2018-11-02] MEDS: Mag Hydrox/Al Hydrox/Simeth 30 ML UDC PO PRN (06:11)
[2018-11-02 06:33] LABS: Calcium 9.7 mg/dL (8.6-10.3); Potassium 3.3 mEq/L (3.5-5.1)
--- NOTE | 2018-11-02 07:13 | Event Note ---
Date of Encounter: 11/02/18 Time of Encounter: 07:10 Received called from nurse stating that patient c/o 'not feeling good all over.' Pt specifically mentioned stomach, and nurse gave pt prilosec and maalox. Vitals stable. Blood glucose = 161 Upon my examination of patient, pt notes again that 'she does not feel good all over.' Notes epigastric tenderness, fatigue, weakness. However, continued to emphasize generalized, nonspecific discomfort. Denies SOB, chest pain, palpitations, nausea. Does not recall when she had her last bowel movement. Will order EKG given pt's elevated troponins on admission.
[2018-11-02] MEDS: Apixaban 5 MG TABLET PO SCH ×2 (08:15→20:02)
[2018-11-02] MEDS: Multivit/Ca/Min/Fe/FA 1 TAB TABLET PO SCH (08:15)
[2018-11-02] MEDS: Cholecalciferol (D-3) 1,000 UNIT TABLET PO SCH (08:16)
[2018-11-02] MEDS: *HR* OxyCODONE Immed Rel 5 MG TABLET PO PRN (08:16)
[2018-11-02] MEDS: Aspirin 81 MG TAB.CHEW PO SCH (08:17)
[2018-11-02] MEDS: Insulin LISPRO 300 UNITS/3 ML VIAL SQ SCH ×4 (08:22→20:03)
--- NOTE | 2018-11-02 13:05 | Electrocardiograph Report ---
[address] [address] Test Date: 2018-11-02 Pat Name: Francie Santos Department: 101 Room: 2A32 Gender: F Web Analyst: : 1930 Requested By: Mike Gagnon Order Number: [id number] Reading MD: Albaro Dockery Measurements Intervals [place] Rate: 91 P: OR: 0 QRS: -70 QRSD: 160 T: 78 QT: 432 QTc: 480 Interpretive Statements ATRIAL FIBRILLATION MARKED LEFT AXIS DEVIATION RIGHT BUNDLE BRANCH BLOCK MODERATE VOLTAGE CRITERIA FOR LVH, CONSIDER NORMAL VARIANT Electronically Signed On 11-02-2018 13:04:16 EST by Albaro Dockery
--- NOTE | 2018-11-02 22:23 | Internal Med Progress Note ---
Hospitalist Progress Note - Encounter Date of Encounter: 11/02/18 Time of Encounter: 19:00 - Subjective Interval History: SUBJECTIVE: The patient feels progressively better. Her abdominal pain is relatively mild; diffuse. Denies nausea, vomiting and diarrhea. Denies chest pain. He denies difficulty breathing, coughing and wheezing. OBJECTIVE: Skin: Free of rash and discoloration. ENMT: Oral/pharyngeal mucosa is normal in appearance. Eyes: Sclera is white. There is no discharge from eyes. Respiratory: Normal breath sounds; no crackles or wheezes. CV: Heart is regular; no gallop or murmur. GI: Abdomen is mildly tender in all 4 quadrants. There is no palpable mass or visceromegaly. Neuro: There is no focal deficits. ADDITIONAL DATA: WBC is 12.7 thousand; with hemoglobin of 12.7. Sodium is 141 with potassium of 3.3. Creatinine is 1.50; 1.57 2 days ago. ASSESSMENT AND PLAN: Acute diverticulitis. Getting progressively better. To continue IV Cipro and IV metronidazole. Acute kidney injury. Resolving. Her baseline creatinine is around 1.50. She is not getting any IV fluids or diuretics at this time. Acute on chronic systolic heart failure. Echocardiogram from 2 days ago showed ejection fraction of 30-35%. The patient has underlying aortic stenosis. To continue cardiac with Cozaar and when necessary Lasix. To continue mild fluid restriction. Type 2 diabetes mellitus. Fasting glucose by BMP is 161. The continue diabetic diet and when necessary insulin Humalog. Hypertension. Under control. To continue Coreg and Cozaar. She has underlying CKD stage III. It is secondary to long-standing type 2 diabetes mellitus and hypertension. Possible UTI. To continue IV Cipro. DISPOSITION: I anticipate her discharge in the next 2-3 days. - Exam Vitals: Temp Pulse Resp BP Pulse Ox 98.3 F 70 16 115/74 96 11/02/18 19:21 11/02/18 19:21 11/02/18 19:21 11/02/18 19:21 11/02/18 21:22 Exam: xx - Assessment and Plan (1) Acute diverticulitis Current Visit: Yes Status: Acute (2) DON (acute kidney injury) Current Visit: Yes Status: Acute (3) Acute on chronic systolic heart failure Current Visit: Yes Status: Acute (4) Diabetes Current Visit: Yes Status: Acute (5) Hypothyroidism Current Visit: Yes Status: Acute (6) Hypertension Current Visit: Yes Status: Acute (7) CKD (chronic kidney disease), stage III Current Visit: Yes Status: Acute (8) UTI (urinary tract infection) Current Visit: Yes Status: Acute - Time Spent with Patient Total time spent is greater than 50% in coordination of care (as documented) at patient's floor/unit and/or counseling patient: 25 - 35 minutes Plan of Care Discussed with: patient Internal Medicine: Result - Labs CBC & Chem 7: 11/02/18 05:34 11/02/18 05:34 Labs: Short CBC 11/02/18 Range/Units 05:34 WBC 12.7 H (4.3-11.1) K/mcL Hgb 12.7 (11.5-15.4) g/dL Hct 41.4 (35.3-44.9) % Plt Count 330 (140-400) K/mcL Neutrophils # 9.5 H (1.6-8.9) K/mcL BMP 11/02/18 05:34 Sodium 141 Potassium 3.3 L Chloride 97 L Carbon Dioxide 36 H BUN 27 H Creatinine 1.50 H Glucose 161 H Calcium 9.7 - Impressions Impressions Chest X-Ray 11/02/18 10:12 IMPRESSION: Mild moderate cardiomegaly with perihilar pulmonary vascular congestion and small pleural effusions. D/ / Kiet Peterson / Kiet Peterson Interpreting Provider: Kiet Peterson Consult Discharge Plan - Plan Referrals: Isidro Funes MD [Primary Care Provider] - (web request sent on 10/31/18) (4) Diabetes Qualifiers: Diabetes mellitus type: type 2 Diabetes mellitus mcc insulin use: without manager terminal use Diabetes mellitus complication status: with unspecified complications Qualified Code(s): E11.8 - Type 2 diabetes mellitus with unspecified complications (5) Hypothyroidism Qualifiers: Hypothyroidism type: unspecified Qualified Code(s): E03.9 - Hypothyroidism, unspecified (6) Hypertension Qualifiers: Hypertension type: essential hypertension Qualified Code(s): I10 - Essential (primary) hypertension (8) UTI (urinary tract infection) Qualifiers: Urinary tract infection type: site unspecified Hematuria presence: with hem aturia Qualified Code(s): N39.0 - Urinary tract infection, site not specified; R31.9 - Hematuria, unspecified
[2018-11-03] MEDS: MetroNIDAZOLE 500 MG/100 ML 500 MG/100 ML BAG IVPB SCH ×2 (00:54→09:40)
[2018-11-03 04:07] LABS: Calcium 9.5 mg/dL (8.6-10.3)
[2018-11-03] MEDS: *HR* OxyCODONE Immed Rel 5 MG TABLET PO PRN (04:12)
[2018-11-03] MEDS: Multivit/Ca/Min/Fe/FA 1 TAB TABLET PO SCH (09:39)
[2018-11-03] MEDS: Insulin LISPRO 300 UNITS/3 ML VIAL SQ SCH ×2 (09:39→11:44)
[2018-11-03] MEDS: Apixaban 5 MG TABLET PO SCH (09:39)
[2018-11-03] MEDS: Cholecalciferol (D-3) 1,000 UNIT TABLET PO SCH (09:40)
[2018-11-03] MEDS: Aspirin 81 MG TAB.CHEW PO SCH (09:40)
[2018-11-03 11:17] VITALS: BP 144/81
--- NOTE | 2018-11-03 11:47 | Discharge Summary ---
Date of Encounter: 11/03/18 Time of Encounter: 11:45 - Discharge Diagnosis (1) Acute on chronic systolic heart failure Priority: Primary Status: Acute (2) Severe aortic stenosis Priority: Primary Status: Chronic (3) DON (acute kidney injury) Priority: Primary Status: Resolved (4) Acute diverticulitis Priority: Primary Status: Acute (5) Diabetes Priority: Secondary Status: Chronic Qualifiers: Diabetes mellitus type: type 2 Diabetes mellitus group home insulin use: without group home use Diabetes mellitus complication status: with kidney complications Diabetes mellitus complication detail: with chronic kidney disease Chronic kidney disease stage: stage 3 (moderate) Qualified Code(s): E11.22 - Type 2 diabetes mellitus with diabetic chronic kidney disease; N18.3 - Chronic kidney disease, stage 3 (moderate) (6) Hypertensive renal disease with renal failure Priority: Secondary Status: Chronic (7) Hypothyroidism Priority: Secondary Status: Chronic Qualifiers: Hypothyroidism type: unspecified Qualified Code(s): E03.9 - Hypothyroidism, unspecified (8) UTI (urinary tract infection) Priority: Secondary Status: Suspected Qualifiers: Urinary tract infection type: site unspecified Hematuria presence: with hematuria Qualified Code(s): N39.0 - Urinary tract infection, site not specified; R31.9 - Hematuria, unspecified Hospital course: HOSPITAL COURSE: The patient is an 88-year-old woman who. We admitted her with progressing fatigue and bilateral swelling of lower legs/feet. She complained of dyspnea on exertion. Denied fever and chills. Chest x-ray showed pulmonary congestion. The patient was put on IV Lasix. On the very next day she developed abdominal pain. CT of abdomen/pelvis was obtained. It showed diverticulitis of sigmoid colon. We started her on IV Cipro/IV Flagyl. Echocardiogram showed ejection fraction of 30-35%. This was fairly short hospitalizationroughly about 4 days. The patient got significantly better by the time of discharge. She is able to ambulate on her own with a walker. She is stronger. Swelling of her lower legs/feet subsided. There is no diarrhea/GI bleeding. CONDITION AT DISCHARGE: Is good. Denies chest pain and difficulty breathing. Denies abdominal pain, nausea and vomiting. She makes good amounts of urine. Skin: Free of rash and discoloration. Respiratory: Normal breath sounds with no crackles and wheezes bilaterally. CV: Heart is regular with no gallop or murmur. GI: Abdomen is flat and soft with no palpable mass or visceromegaly. Neuro exam: There is no focal deficits. Normal speech, swallowing and gait. SEE DISCHARGE ORDERS/MEDICATIONS.. Discharge discussed with: patient, family - Time Spent with Patient Total time spent providing and/or coordinating discharge services: Greater than 30 minutes (45 minutes..) - Discharge Medications Prescriptions: Ciprofloxacin [Cipro] 250 mg PO DAILY #7 tablet metroNIDAZOLE [Flagyl] 500 mg PO TID #21 tablet Home Medications: Apixaban [Eliquis] 5 mg PO BID 10/30/18 [History] Aspirin [Adult Aspirin] 81 mg PO DAILY 10/30/18 [History] Calcitriol [Rocaltrol] 0.25 mcg PO MOWEFR 10/30/18 [History] Carvedilol [Coreg] 6.25 mg PO BIDWM 10/30/18 [History] Cholecalciferol (D-3) [Vitamin D] 1,000 unit PO DAILY 10/30/18 [History] Esomeprazole Magnesium [Nexium] 40 mg PO DAILY 10/30/18 [History] Estradiol [Estrace] 1 appl VG DAILY 10/30/18 [History] Furosemide [Lasix] 20 mg PO DAILY 10/30/18 [History] Gabapentin [Neurontin] 100 mg PO TID 10/30/18 [History] Insulin Glargine,Hum.rec.anlog [Basaglar Kwikpen U-100] 0 unit SQ 10/30/18 [History] Levothyroxine [Synthroid] 50 mcg PO DAILY 10/30/18 [History] Linagliptin [Tradjenta] 5 mg PO DAILY 10/30/18 [History] Mv,Fe,Min/Lutein [A Thru Z [employer] Tablet] 1 tab PO DAILY 10/30/18 [History] Olmesartan Medoxomil [Benicar] 20 mg PO DAILY 10/30/18 [History] Tramadol HCl [Ultram] 50 mg PO Q12H PRN 10/30/18 [History] glipiZIDE [Glipizide] 10 mg PO DAILY 10/30/18 [History] Ciprofloxacin [Cipro] 250 mg PO DAILY #7 tablet 11/03/18 [Rx] Indapamide [Lozol] 1.25 mg PO QAM #0 11/03/18 [Rx] metroNIDAZOLE [Flagyl] 500 mg PO TID #21 tablet 11/03/18 [Rx] Allergies/Adverse Reactions: Allergy/AdvReac Type Severity Reaction Status Date / Time No Known Allergies Allergy Verified 10/30/18 14:14 Date of admission: 11/01/18 12:18 Primary care physician: Isidro Funes MD Consults: 10/30/18 16:14 Consult to Occupational Therapy [CONS] Routine Comment: Evaluate, develop and implement POC Reason for Consult: Generalized weakness with decreased functional capacity Does patient have active BEDREST order?: No Is patient medically & hemodynamically stable?: Yes Patient assessed for mobility or mobilized this visit?: Yes Consult to Physical Therapy [CONS] Routine Comment: Evaluate, develop and implement POC Reason for Consult: Generalized weakness with decreased functional capacity Does patient have active BEDREST order?: No Is patient medically & hemodynamically stable?: Yes Patient assessed for mobility or mobilized this visit?: Yes Discharging clinician: Placido Horton Anticipated date of discharge: 11/03/18 - Constitutional Vitals: Temp Pulse Resp BP Pulse Ox 98.8 F 98 17 144/81 97 11/03/18 11:12 11/03/18 11:12 11/03/18 11:12 11/03/18 11:12 11/03/18 11:12 General appearance: Present: A&O X 3, answers questions appropriately Exam: xx - Patient Status Disposition: Home, Self-Care Condition: Fair Functional capacity at discharge: uses cane/walker (with a walker..) - Discharge Instructions Instructions: Metronidazole (By mouth), Diverticulitis (GEN), Fluid Restriction (GEN) Follow Up With: Isidro Funes MD [Primary Care Provider] - (web request was sent along with a voicemail left for a hospital follow up in 5-7 days.) Additional Instructions: FLUID RESTRICTION OF 1800 PER DAY.. FOLLOW-UP WITH CARDIOLOGY AT [facility] -- EVERY 6-12 MONTHS.. - Diet and Activity Activity: ambulate only with your walker Diet: diabetic diet (FLUID RESTRICTION OF 1800 ML PER DAY..) - VTE Reasons for not Prescribing Prophylaxis: Not indicated-Anticoagulated or INR therapeutic Deep Vein Thrombosis/Pulmonary Embolism Present on Admission: No
[2018-11-03] MEDS ORDERED: metroNIDAZOLE 500 MG TABLET PO SCH (15:00)
--- NOTE | 2018-11-04 13:14 | Physician Discharge Referral ---
Home Health/Hosp Referral Info Transfer to: Home Health Attending Provider: Cecil Horton MD Provider in Charge Post Discharge: PCP - Diagnosis (1) Acute on chronic systolic heart failure Priority: Primary Status: Acute (2) Severe aortic stenosis Priority: Primary Status: Chronic (3) Acute diverticulitis Priority: Primary Status: Acute (4) Diabetes Priority: Secondary Status: Chronic (5) Hypertensive renal disease with renal failure Priority: Secondary Status: Chronic (6) Hypothyroidism Priority: Secondary Status: Chronic (7) UTI (urinary tract infection) Priority: Primary Status: Suspected - Respiratory Orders None Smoking Cessation: Smoking cessation has been advised. For more information, call the [place] Tobacco Quit Line at 2-028-WLSP-NOW. - Diet/Nutrition Diet/Nutrition Orders: No Concentrated Sweets (FLUID RESTRICTION OF 1800 ML PER DAY..) - Activity Activity Orders: Ambulate - Services Needed Following services are medically necessary services: Nursing, Physical Therapy, Occupational Therapy - Transfer Medications Prescriptions: Ciprofloxacin [Cipro] 250 mg PO DAILY #7 tablet metroNIDAZOLE [Flagyl] 500 mg PO TID #21 tablet Home Medications: Apixaban [Eliquis] 5 mg PO BID 10/30/18 [History] Aspirin [Adult Aspirin] 81 mg PO DAILY 10/30/18 [History] Calcitriol [Rocaltrol] 0.25 mcg PO MOWEFR 10/30/18 [History] Carvedilol [Coreg] 6.25 mg PO BIDWM 10/30/18 [History] Cholecalciferol (D-3) [Vitamin D] 1,000 unit PO DAILY 10/30/18 [History] Esomeprazole Magnesium [Nexium] 40 mg PO DAILY 10/30/18 [History] Estradiol [Estrace] 1 appl VG DAILY 10/30/18 [History] Furosemide [Lasix] 20 mg PO DAILY 10/30/18 [History] Gabapentin [Neurontin] 100 mg PO TID 10/30/18 [History] Insulin Glargine,Hum.rec.anlog [Basaglar Kwikpen U-100] 0 unit SQ 10/30/18 [History] Levothyroxine [Synthroid] 50 mcg PO DAILY 10/30/18 [History] Linagliptin [Tradjenta] 5 mg PO DAILY 10/30/18 [History] Mv,Fe,Min/Lutein [A Thru Z [employer] Tablet] 1 tab PO DAILY 10/30/18 [History] Olmesartan Medoxomil [Benicar] 20 mg PO DAILY 10/30/18 [History] Tramadol HCl [Ultram] 50 mg PO Q12H PRN 10/30/18 [History] glipiZIDE [Glipizide] 10 mg PO DAILY 10/30/18 [History] Ciprofloxacin [Cipro] 250 mg PO DAILY #7 tablet 11/03/18 [Rx] Indapamide [Lozol] 1.25 mg PO QAM #0 11/03/18 [Rx] metroNIDAZOLE [Flagyl] 500 mg PO TID #21 tablet 11/03/18 [Rx] Allergies/Adverse Reactions: Allergy/AdvReac Type Severity Reaction Status Date / Time No Known Allergies Allergy Verified 10/30/18 14:14 Certification: Further, I certify that my clinical findings support that this patient is homebound (i.e. absences from home require considerable and taxing effort and are for medical reasons or caodaism services or infrequently or short duration when for other reasons) because: Homebound Reason: Leaving home requires considerable and taxing effort due to condition Attestation: My signature below is to certify that this patient is under my care and that I, or nurse practitioner, or a physician's central supply assistant working with me, has a [id number] encounter with this patient.
== END 2018-11-03 16:20 | disposition home or self-care (01) | DRG 291 ==
LOC: 2ANU 13:10 → EMEROOARM 13:10 → 2ANU 19:33 → SUATTDRO 11-01 12:18
PROVIDERS: ADMIT Internal Medicine Cardiovascular Disease; ATTEND Internal Medicine